=== PATIENT | female | born 1980 | race Caucasian/White ===

== ENCOUNTER 2020-07-22 02:47 | Emergency (ER) | payer SELFPAY ==
[2020-07-22 03:00] VITALS: BP 131/83
[2020-07-22] MEDS ORDERED: dexAMETHasone 20 MG/5 ML VIAL IV ONE (03:07)
[2020-07-22] MEDS ORDERED: SODIUM CHLORIDE 0.9% 1000 ML 1,000 ML IV ONE (03:07)
[2020-07-22] MEDS ORDERED: cefTRIAXone/NS 1 GM/50 ML 1 GM/50 ML BAG IV ONE (03:08)
--- NOTE | 2020-07-22 03:13 | Emergency Department Report ---
ED ENT HPI - General Chief complaint: Dyspnea/Respdistress Stated complaint: AXEL/THROAT SWELLING Time Seen by Provider: 07/22/20 03:04 Source: patient Mode of arrival: Ambulatory Limitations: No Limitations - History of Present Illness Initial comments: CC: "My throat is swollen." HPI: This is a healthy 39 yo female without significant past medical hx who presents with sore throat for 3 day. Urgent care visit on yesterday. She received Prednisone and Penicillin. Now has difficulty breathing. She feels like her throat is closing. She took Ibuprofen prior to arrival. MD complaint: sore throat -: Gradual, days(s) (3) Location: throat Severity: severe Consistency: constant Improves with: none Worsens with: swallowing Associated Symptoms: sore throat - Related Data Allergies Allergy/AdvReac Type Severity Reaction Status Date / Time No Known Allergies Allergy Unverified 07/22/20 03:00 ED Dental HPI - General Chief complaint: Dyspnea/Respdistress Stated complaint: AXEL/THROAT SWELLING Time Seen by Provider: 07/22/20 03:04 Source: patient Mode of arrival: Ambulatory Limitations: No Limitations - Related Data Allergies Allergy/AdvReac Type Severity Reaction Status Date / Time No Known Allergies Allergy Unverified 07/22/20 03:00 ED Review of Systems ROS: Stated complaint: AXEL/THROAT SWELLING Other details as noted in HPI Comment: All other systems reviewed and negative Constitutional: denies: fever, malaise Respiratory: shortness of breath. denies: cough, wheezing Cardiovascular: denies: chest pain Gastrointestinal: denies: abdominal pain, nausea, vomiting ED Past Medical Hx - Past Medical History Previous Medical History?: No - Surgical History Past Surgical History?: No - Social History Smoking Status: Never Smoker Substance Use Type: None ED Physical Exam - General Limitations: No Limitations General appearance: alert, in no apparent distress, other (breathing comfortably through mask, raspy voice) - Head Head exam: Present: atraumatic, normocephalic - Eye Eye exam: Present: normal appearance - ENT ENT exam: Present: other (edematous symmetric tonsils not touch uvula with diffuse white exudatesz) - Neck Neck exam: Present: normal inspection, other (no stridor) - Respiratory Respiratory exam: Present: normal lung sounds bilaterally. Absent: respiratory distress, wheezes, rales - Cardiovascular Cardiovascular Exam: Present: regular rate, normal rhythm, normal heart sounds. Absent: systolic murmur, diastolic murmur, rubs, gallop - GI/Abdominal GI/Abdominal exam: Present: soft, normal bowel sounds. Absent: distended, tend erness, guarding, rebound - Extremities Exam Extremities exam: Present: normal inspection - Neurological Exam Neurological exam: Present: alert, oriented X3 - Psychiatric Psychiatric exam: Present: normal affect, normal mood - Skin Skin exam: Present: warm, dry, intact, normal color. Absent: rash ED Course Vital Signs 07/22/20 02:54 Temperature 98.0 F Pulse Rate 103 H Respiratory 18 Rate Blood Pressure 131/83 O2 Sat by Pulse 96 Oximetry ED Medical Decision Making - Medical Decision Making Acute pharyngitis: DDX: Group A streptococcal infection vs mononucleosis For comfort and supportive care, patient received IV decadron, IV ceftriaxone and IVF. After treatment emergency department, patient felt much better. She was able to phonate in improved fashion. Her voice has almost normalized. She was able to tolerate liquids. She will follow with her primary physician in [place]. Critical care attestation.: If time is entered above; I have spent that time in minutes in the direct care of this critically ill patient, excluding procedure time. ED Disposition Clinical Impression: Acute bacterial pharyngitis Disposition: DC-01 TO HOME OR SELFCARE Is pt being admited?: No Does the pt Need Aspirin: No Condition: Stable Instructions: Pharyngitis
== END 2020-07-22 04:47 | disposition home or self-care (01) ==
LOC: ED 02:47
DX: J02.8 Acute pharyngitis due to other specified organisms (principal); B96.89 Other specified bacterial agents as the cause of diseases classified elsewhere
CPT/HCPCS: 96365; 96375; 99282; J0696; J1100; J7030